=== PATIENT | female | born 1965 | race Caucasian/White ===

== ENCOUNTER 2017-08-14 14:14 | Emergency (ER) | payer MEDICAID ==
--- NOTE | 2017-08-14 14:59 | EDM.PDOC ---
ED HPI GENERAL MEDICAL PROBLEM - General Stated Complaint: BROKEN TOOTH Time Seen by Provider: 08/14/17 14:14 Source of Information: Reports: Patient History Limitations: Reports: No Limitations - History of Present Illness INITIAL COMMENTS - FREE TEXT/NARRATIVE: 51 y.o.w.f came to the ed due to tooth ache requesting pain meds, has no money for a dentist, no other complains Onset: Today Onset Date: 08/14/17 Onset Time: 04:00 Duration: Minutes:, Getting Worse Location: Reports: Face Quality: Reports: Ache, Dull, Pressure, Same as Previous Episode Improves with: Reports: Rest Worsens with: Reports: Cold Therapy, Eating Context: Reports: Other (poor dentition, tobacco use.) Associated Symptoms: Reports: No Other Symptoms upper left tooth Pain Score (Numeric/FACES): 8 - Related Data Allergies Allergy/AdvReac Type Severity Reaction Status Date / Time No Known Allergies Allergy Verified 08/14/17 14:56 Home Meds: Home Meds Acetaminophen/HYDROcodone [[place] 325-5 MG] 1 tab PO Q4H PRN #6 tab 08/14/17 [Rx] Amoxicillin/Potassium Clav [Augmentin 875-125 Tablet] 1 each PO BID #20 tablet 08/14/17 [Rx] Past Medical History HEENT History: Reports: Impaired Vision Cardiovascular History: Reports: High Cholesterol Respiratory History: Reports: Asthma Gastrointestinal History: Reports: GERD, Other (See Below) Other Gastrointestinal History: chronic rectal bleeding. [employer] History: Reports: Neurological History: Reports: Migraines Psychiatric History: Reports: Addiction, Depression, Suicide Attempt, Other ( See Below) Other Psychiatric History: hx crack cocaine, pot, - Infectious Disease History Other Infectious Disease History: has hep-C - Past Surgical History HEENT Surgical History: Reports: Oral Surgery Female Surgical History: Reports: Tubal Ligation Social & Family History - Family History Family Medical History: Noncontributory - Tobacco Use Smoking Status *Q: Current Every Day Smoker Years of Tobacco use: 40 Packs/Tins Daily: 0.5 Second Hand Smoke Exposure: Yes - Caffeine Use Caffeine Use: Reports: Coffee - Alcohol Use Days Per Week of Alcohol Use: 1 Number of Drinks Per Day: 1 Total Drinks Per Week: 1 - Recreational Drug Use Recreational Drug Use: Yes Drug Use in Last 12 Months: Yes Recreational Drug Type: Reports: Cocaine, Marijuana/Hashish Recreational Drug Use Frequency: Monthly Recreational Drug Last Use: 2008 ED ROS ENT - Review of Systems Review Of Systems: See Below Constitutional: Reports: No Symptoms HEENT: Reports: Dental Pain Respiratory: Reports: No Symptoms Cardiovascular: Reports: No Symptoms Endocrine: Reports: No Symptoms GI/Abdominal: Reports: No Symptoms : Reports: No Symptoms Musculoskeletal: Reports: No Symptoms Skin: Reports: No Symptoms Neurological: Reports: No Symptoms Psychiatric: Reports: No Symptoms Hematologic/Lymphatic: Reports: No Symptoms Immunologic: Reports: No Symptoms ED EXAM, ENT - Physical Exam Exam: See Below Exam Limited By: No Limitations General Appearance: Alert, WD/WN, Mild Distress Eye Exam: Bilateral Eye: Normal Inspection Ears: Normal External Exam Nose: Normal Inspection Mouth/Throat: Dental Abcess, Dental Pain Head: Atraumatic, Normocephalic Neck: Normal Inspection Respiratory/Chest: No Respiratory Distress Cardiovascular: Normal Peripheral Pulses GI/Abdominal: Normal Bowel Sounds (Female) Exam: Deferred Rectal (Female) Exam: Deferred Back: Normal Inspection, Full Range of Motion Extremities: Normal Inspection, Normal Range of Motion, Non-Tender Neurological: Alert, Oriented, CN II-XII Intact, Normal Cognition Psychiatric: Normal Affect, Normal Mood Skin: Warm, Dry, Intact Lymphatic: No Adenopathy Course - Vital Signs Text/Narrative:: 51 y.o.w.f came to the ed due to tooth ache requesting pain meds, has no money for a dentist, no other complains PE: poor dentition with severe decayed tooth #15 Impression: Toothache, gingivitis Tx: Prescription for [place] and Abx Plan: D/C with instructions Last Recorded V/S: Last Vital Signs Temp 36.3 C 08/14/17 14:30 Pulse 64 08/14/17 14:30 Resp 17 08/14/17 14:30 BP 101/58 L 08/14/17 14:30 Pulse Ox 100 08/14/17 14:30 Departure - Departure Time of Disposition: 14:55 Disposition: Home, Self-Care 01 Condition: Good Clinical Impression: Toothache, Gingivitis - Discharge Information Prescriptions: Acetaminophen/HYDROcodone [[place] 325-5 MG] 1 tab PO Q4H PRN #6 tab PRN Reason: severe pain Amoxicillin/Potassium Clav [Augmentin 875-125 Tablet] 1 each PO BID #20 tablet Referrals: PCP,None [Primary Care Provider] - Forms: ED Department Discharge Additional Instructions: Pleae f/u with your dentist, please take the meds as recommended, please come back if your symptoms get worse acutely
[2017-08-14 16:14] VITALS: BP 101/58
== END 2017-08-14 15:02 | disposition home or self-care (01) ==
LOC: FB.ED 14:14
DX: K05.10 Chronic gingivitis, plaque induced (principal); E78.00 Pure hypercholesterolemia, unspecified; J45.909 Unspecified asthma, uncomplicated; F17.210 Nicotine dependence, cigarettes, uncomplicated; K21.9 Gastro-esophageal reflux disease without esophagitis; G43.909 Migraine, unspecified, not intractable, without status migrainosus; F32.9 Major depressive disorder, single episode, unspecified; Z98.51 Tubal ligation status
CPT/HCPCS: 99282; 99283

== ENCOUNTER 2018-03-07 20:02 | Emergency (ER) | payer SELFPAY ==
[2018-03-07 20:50] VITALS: BP 116/63
--- NOTE | 2018-03-09 11:09 | ER ---
DATE SEEN: 03/07/2018 TIME SEEN: The patient was seen at 2030 hours. HISTORY OF PRESENT ILLNESS: This woman is a 52-year-old, who has had several lesions superior to the medial raphae as the buttocks come together, bilateral, for 29 years, and she has some mild induration on left side of the face and has trace of erythema that she is concerned about. The patient is a smoker. She has fair dentition. Otherwise, alert, has what I think is a Southern drawl. Very pleasant. PHYSICAL EXAMINATION: On examination of the face, she has mild induration of a slightly raised, flattened, papular, nonerythematous, normal skin colored subdermal plaque. Nontender. No unusual characteristics of the hair follicles on the dermis. Also, she has bilateral dry crusted, flaking,thickened nonerythematous lesion superomedial to the glutea as they come to the raphae, approximately 2 cm to 4 cm on each side of the midline. ASSESSMENT: Rule out guttate psoriasis in the lower supragluteal area near median raphae. Apply b.i.d. for 1 week and then weekly for 2 weeks this triamcinolone 0.1%, 15 g prescribed. If not improved, follow up with a subacute nurse in 3 to 4 weeks. Also lesion on the face, do not apply any steroids on the face. 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 /[id number] SERA/NICOLE DEVINE
== END 2018-03-07 21:00 | disposition home or self-care (01) ==
LOC: FB.ED 20:02
DX: L98.9 Disorder of the skin and subcutaneous tissue, unspecified (principal); F17.200 Nicotine dependence, unspecified, uncomplicated
CPT/HCPCS: 99282